=== PATIENT | female | born 1995 | race American Indian/Alaskan Native ===

== ENCOUNTER 2019-05-04 17:54 | Emergency (ER) | payer SELFPAY ==
--- NOTE | 2019-05-04 18:15 | Emergency Department Report ---
Blank Doc - Documentation Documentation: 23-year-old female that presents with n/v, generalized body aches and alpesh upper and lower extremities. This initial assessment/diagnostic orders/clinical plan/treatment(s) is/are subject to change based on patient's health status, clinical progression and re- assessment by fellow clinical providers in the ED. Further treatment and workup at subsequent clinical providers discretion. Patient/guardians urged not to elope from the ED as their condition may be serious if not clinically assessed and managed. Initial orders include: 1- Patient sent to [facility] for further evaluation and treatment 2- labs 3- UA
[2019-05-04] MEDS ORDERED: ONDANSETRON 4 MG ODT TAB PO ONE (18:16)
[2019-05-04] MEDS ORDERED: ONDANSETRON 4 MG ODT TAB ONE (18:17)
[2019-05-04 18:18] VITALS: BP 136/71
[2019-05-04 19:07] LABS: Basophils % (Auto) 0.1 % (0.0-1.8); Hematocrit 44.2 % (30.3-42.9); Hemoglobin 14.9 gm/dl (10.1-14.3); Lymphocytes # (Auto) 1.4 K/mm3 (1.2-5.4); Lymphocytes % (Auto) 19.1 % (13.4-35.0); Mean Corpuscular HGB Conc 34 % (30-34); Mean Corpuscular Volume 85 fl (79-97); Monocytes % (Auto) 13.4 % (0.0-7.3); Platelet Count 184 K/mm3 (140-440); Red Blood Count 5.18 M/mm3 (3.65-5.03)
[2019-05-04 19:22] LABS: Alanine Aminotransferase 27 units/L (7-56); Albumin 4.4 g/dL (3.9-5); BUN/Creatinine Ratio 8; Blood Urea Nitrogen 8 mg/dL (7-17); Calcium 9.3 mg/dL (8.4-10.2); Hemolysis Index 15
== END 2019-05-04 20:00 | disposition left against medical advice (07) ==
LOC: ED 17:54
DX: R53.1 Weakness (principal); Z53.21 Procedure and treatment not carried out due to patient leaving prior to being seen by health care provider
CPT/HCPCS: 36415; 80053; 83690; 84703; 85025; Q0162